=== PATIENT | male | born 1945 | race Caucasian/White ===

== ENCOUNTER → 2019-02-13 | Day surgery (SDC) | payer MEDICARE ==
[~2019-02-13] MED LIST: BUPIVACAINE HCL 0.5 % INJ/PF 30 ML SDV ONE; LIDOCAINE 1% INJ-PF (10 MG/ML) 30 ML SDV ONE; METHYLPREDNISOLONE ACETATE INJ 40 MG/1 ML ML ONE
--- NOTE | 2019-02-13 15:50 | RADIOLOGY REPORT (SQ) ---
EXAM DESCRIPTION: INJECT/ASPIR WRIST/ELB/ANKLE; FLUORO/NEEDLE PLACEMENT COMPLETED DATE/TIME: 02/13/2019 2:05 pm REASON FOR STUDY: BILATERAL FOOT PAIN (M79.371, M79.372) M79.671 PAIN IN RIGHT FOOT M79.672 PAIN I N LEFT FOOT COMPARISON: None. FLUOROSCOPY TIME: 1.6 minutes. 2 images saved to PACS. LIMITATIONS: None. PROCEDURE: SITE OF INJECTION: Bilateral cuboideonavicular joints. LOCALIZING CONTRAST TYPE AND DOSE: 0.5 mL of Omnipaque 300 MEDICATION TYPE AND DOSE: 1 mL of bupivacaine and 40 mg of Depo-Medrol was injected into the right an d left cuboideonavicular joints. Using local anesthesia and sterile technique with fluoroscopic guidance, the needle was advanced into the right cuboideonavicular joint. Iodinated contrast was then injected to verify intraarticular demetrio cement. This was followed by therapeutic injection of the indicated medications. The needle was rem job. There were no immediate complications. Using local anesthesia and sterile technique with fluoroscopic guidance, the needle was advanced into the left cuboideonavicular joint. Iodinated contrast was then injected to verify intraarticular plac ement. This was followed by therapeutic injection of the indicated medications. The needle was miracle cedric. There were no immediate complications. Preprocedure pain level: 5/10. Postprocedure pain level: 2/10. IMPRESSION: THERAPEUTIC INJECTION OF THE BILATERAL CUBOIDEONAVICULAR JOINTS ABOVE. COMMENT: Patient medication list reviewed: Yes- Quality ID# [id number]:Eligible professional attests to doc umenting in the medical record they obtained, updated, or reviewed the patient's current medications. . Quality ID [id number]: Final reports for procedures using fluoroscopy that document radiation exposure nicola jose, or exposure time and number of fluorographic images (if radiation exposure indices are not avail able) TECHNICAL DOCUMENTATION: JOB ID: [id number] [employer]- All Rights Reserved Reading location - IP/workstation name: [email or web address]
== END ==
LOC: RAD 12:44
PROVIDERS: ATTEND Physician Assistant
DX: M79.671 Pain in right foot (principal); M79.672 Pain in left foot
CPT/HCPCS: 20605; 77002; J3490; J1030